=== PATIENT | male | born 1980 ===

== ENCOUNTER 2017-05-20 15:28 | Emergency (ER) | payer OTHER ==
[2017-05-20 16:15] VITALS: BP 112/75; PULSE 78; RESP 16; TEMP 98.2; O2SAT 99
[2017-05-20] MEDS ORDERED: Oxycodone/Acetaminophen 5/325 mg Tab PO STA (18:32)
[2017-05-20] MEDS ORDERED: Tdap Vaccine 0.5 ml Vial (10-64 yrs) IM ONE ×2 (18:32→19:00)
[2017-05-20] MEDS ORDERED: Lidocaine 1% Inj (20ml) IJ STA (18:33)
--- NOTE | 2017-05-20 18:37 | RAD ---
PROCEDURE: Left Hand Radiographs. HISTORY: trauma r/o fracture COMPARISON: None available. FINDINGS: BONES: No acute displaced fracture. JOINTS: No dislocation. SOFT TISSUES: Soft tissue irregularity/ laceration involving the distal 3rd phalanx. No evidence of radiopaque foreign body. OTHER FINDINGS: None. IMPRESSION: Soft tissue irregularity/laceration involving the distal 3rd phalanx. No acute displaced fracture or dislocation identified. If symptoms persist, or if there is continued clinical concern, x-ray follow-up in 7-10 days should be considered.
[2017-05-20] MEDS ORDERED: Lidocaine 1% Inj (20ml) ONE (18:46)
--- NOTE | 2017-05-20 18:55 | ED PDOC ---
Upper Extremity Pain/Injury Time Seen by Provider: 05/20/17 18:10 Chief Complaint (Nursing): Abnormal Skin Integrity Chief Complaint (Provider): Abnormal Skin Integrity History Per: Patient History/Exam Limitations: no limitations Onset/Duration Of Symptoms: Hrs (x 2) Current Symptoms Are (Timing): Still Present Severity: Moderate Pain Scale Rating Of: 9 Additional Complaint(s): Patient is a 36 year old male who presents to the emergency department with an open wound to left third digit x2 hours after accidentally closing a metal apartment door on it. Patient reports localized pain, rated 9/10. Denies taking medications prior to arrival. Patient states he is left-hand dominant. Tetanus vaccine is not up-to-date. Otherwise; (-) FB sensation (-) loss of sensation PMD: No Family Provider Past Medical History Reviewed: Historical Data, Nursing Documentation, Vital Signs Vital Signs: Last Vital Signs Temp 98.2 F 05/20/17 16:11 Pulse 78 05/20/17 16:11 Resp 16 05/20/17 16:11 BP 112/75 05/20/17 16:11 Pulse Ox 99 05/20/17 16:11 - Medical History PMH: No Chronic Diseases - Surgical History Surgical History: No Surg Hx - Family History Family History: States: Unknown Family Hx - Living Arrangements Living Arrangements: With Family - Social History Current smoker - smoking cessation education provided: No Alcohol: None Drugs: Denies - Immunization History Hx Tetanus Toxoid Vaccination: No (unknown) - Home Medications Home Medications: Ambulatory Orders Medication Instructions Recorded Bacitracin Ointment [Bacitracin] 2 gm TOP BID #1 tube 05/20/17 Cephalexin [cephalexin] 500 mg PO BID #14 cap 05/20/17 - Allergies Allergies/Adverse Reactions: Allergies Allergy/AdvReac Type Severity Reaction Status Date / Time No Known Allergies Allergy Verified 05/20/17 16:10 Review of Systems ROS Statement: Except As Marked, All Systems Reviewed And Found Negative Constitutional: Negative for: Fever Cardiovascular: Negative for: Chest Pain Gastrointestinal: Negative for: Abdominal Pain Skin: Positive for: Other (Open wound to left third digit) Physical Exam - Reviewed Nursing Documentation Reviewed: Yes Vital Signs Reviewed: Yes - Physical Exam Appears: Positive for: Well, Non-toxic, Uncomfortable Head Exam: Positive for: ATRAUMATIC, NORMOCEPHALIC Eye Exam: Positive for: EOMI, PERRL Neck: Positive for: Supple Cardiovascular/Chest: Positive for: Regular Rate, Rhythm Respiratory: Positive for: Normal Breath Sounds. Negative for: Decreased Breath Sounds, Accessory Muscle Use, Respiratory Distress Gastrointestinal/Abdominal: Positive for: Soft. Negative for: Tenderness, Mass , Distended, Guarding Extremity: Positive for: Other ((+) Distal Phalanx of the 3rd left digit: Diffuse tenderness and ecchymosis, (+)subungual hematoma with nail displacement distally with active bleeding, laceration extending to the medial and lateral dorsal distal phalanx extending to the palmar aspect of the distal phalanx) Neurologic/Psych: Positive for: Alert, clinical asst II-XII, Oriented (x 3) - ECG O2 Sat by Pulse Oximetry: 99 (RA) Pulse Ox Interpretation: Normal Medical Decision Making Medical Decision Making: Time: 18:32 Plan: - Left Hand X-Ray - Percocet 5/325 mg Tab - Adacel (10-64 yrs) 0.5 ml IM - Lidocaine 1% (5ml) 18:45 Left-Hand X-Ray FINDINGS: BONES: No acute displaced fracture. JOINTS: No dislocation. SOFT TISSUES: Soft tissue irregularity/ laceration involving the distal 3rd phalanx. No evidence of radiopaque foreign body. OTHER FINDINGS: None. IMPRESSION: Soft tissue irregularity/laceration involving the distal 3rd phalanx. No acute displaced fracture or dislocation identified. If symptoms persist, or if there is continued clinical concern, x-ray follow-up in 7-10 days should be considered. 1900 Laceration repair performed by Peri DIAZ. Patient tolerated procedure well. Procedure note below. Treated with Keflex PO. Educated on wound care. Diagnostic results d/w the patient in great detail. Diagnosis of finger laceration, subungal hematoma d/w the patient. Based on history, exam and diagnostic results, plan will be for outpatient follow up. Advised wound check in 2 days, suture removal in 7 days, and follow up with Dr Reaves(hand). Return to ED with any new or worsening symptoms. Scribe Attestation: Documented by Wayne Dela Cruz, acting as a scribe for Coby Whitt PA-C Provider Scribe Attestation: All medical record entries made by the Scribe were at my direction and personally dictated by me. I have reviewed the chart and agree that the record accurately reflects my personal performance of the history, physical exam, medical decision making, and the department course for this patient. I have also personally directed, reviewed, and agree with the discharge instructions and disposition. Procedures - Time-Out Type of Procedure: Laceration/Nail Repair - Laceration/Wound Repair Left Finger Wound Length (cm): 2 Wound's Depth, Shape: superficial (U shaped (+) nail involvement) Wound Explored: no foreign body removed Irrigated w/ Saline (ccs): 100 Betadine Prep?: No Anesthesia: 1% Lidocaine Volume Anesthetic (ccs): 5 Wound Debrided: minimal Wound Repaired With: Sutures Suture Size/Type: 5:0, proline Number of Sutures: 10 Layer Closure?: Yes (Including nail repair) Wound Complexity: Intermediate Sterile Dressing Applied?: Yes Splint Applied?: No Disposition - Clinical Impression Clinical Impression: Finger laceration, Subungual hematoma of finger - Patient ED Disposition Is Patient to be Admitted: No Counseled Patient/Family Regarding: Diagnosis, Need For Followup, Rx Given - Disposition Referrals: Zenaida Reaves MD [Staff Provider] - Disposition: Routine/Home Disposition Time: 20:34 Condition: STABLE Prescriptions: Bacitracin Ointment [Bacitracin] 2 gm TOP BID #1 tube Cephalexin [cephalexin] 500 mg PO BID #14 cap Instructions: Laceration Repair With Stitches (DC) Forms: Kelly Van Gogh Hair Colour ([place]) Print Language: GEORGIAN - POA Present On Arrival: None
[2017-05-20] MEDS ORDERED: Oxycodone/Acetaminophen 5/325 mg Tab ONE (19:00)
== END 2017-05-20 21:07 | disposition home or self-care (01) ==
LOC: H.ER 15:28
DX: S61.313A Laceration without foreign body of left middle finger with damage to nail, initial encounter (principal); W23.0XXA Caught, crushed, jammed, or pinched between moving objects, initial encounter; S60.132A Contusion of left middle finger with damage to nail, initial encounter; Z23 Encounter for immunization